=== PATIENT | female | born 1955 | race Caucasian/White ===

== ENCOUNTER → 2020-06-04 | Day surgery (SDC) | payer OTHER, MEDICARE ==
[~2020-06-04] MED LIST: ALLOPURINOL100 MG PO; BENZOCAINE/TETRACAINE/BUTAMBEN AERO SPRAY 56 GM CAN ONE; BIOFREEZE TOP; BUMETANIDE0.5 MG PO; CILOSTAZOL50 MG PO; CLONAZEPAM1 MG PO; COLACE100 MG PO; CYCLOBENZAPRINE10 MG PO; CYMBALTA30 MG PO; DICLOFENAC SOD100 G1 TOP; EXCEDRIN MIGRA1 EAC3 PO; FAMOTIDINE20 MG PO; FLANDERS BUTTOC30 GM TOP; FLEET ENEMA133 ML PR; FLONASE ALLERG9.9 ML INH; HYDROCODON-ACE1 EAC9 PO; KETAMINE HCL INJ 50 MG/ML 10 ML VIAL ONE; LACTULOSE20 GM/30 M PO; LEVOTHYROXINE50 MCG PO; LIDOCAINE CREAM TOP; LIDOCAINE HCL 2% LOCAL INJ 5 ML SDV VIAL INJ ONE; LISINOPRIL2.5 MG PO; MAALOX MAXIMUM355 ML PO; MELATONIN3 M1 PO; METAMUCIL FIBE3.4 GM PO; NEURONTIN300 MG PO; NYSTATIN1 EAC9 TOP; ONDANSETRON2 MG/1 ML IV; OXYBUTYNIN CHLOR5 MG PO; PANTOPRAZOLE 40 MG 10ML VIAL ONE; PATADAY2.5 ML OP; PEPTO-BISM262 MG/15 PO; PHENAZOPYRIDIN100 MG PO; PROPOFOL IV EMULSION 10 MG/ML 20 ML VIAL ONE; REFRESH PLUS1 EACH OU; ROBITUSSIN COU118 M4 PO; SENOKOT-S TABL1 EACH PO; TERA-GEL TAR118 ML TOP; TESSALON PERLE100 MG PO; TYLENOL325 MG PO
[2020-06-04 10:40] VITALS: BP 137/74
== END | disposition home or self-care (01) ==
LOC: OR 06:25
PROVIDERS: ATTEND Internal Medicine Gastroenterology
DX: K29.50 Unspecified chronic gastritis without bleeding (principal); K21.9 Gastro-esophageal reflux disease without esophagitis; K22.8 Other specified diseases of esophagus; R13.10 Dysphagia, unspecified; K31.89 Other diseases of stomach and duodenum; R19.7 Diarrhea, unspecified; E66.01 Morbid (severe) obesity due to excess calories; M10.9 Gout, unspecified; M06.9 Rheumatoid arthritis, unspecified; J44.9 Chronic obstructive pulmonary disease, unspecified; I11.0 Hypertensive heart disease with heart failure; I50.9 Heart failure, unspecified; I89.0 Lymphedema, not elsewhere classified; F32.9 Major depressive disorder, single episode, unspecified; F41.9 Anxiety disorder, unspecified; Z88.0 Allergy status to penicillin; Z01.810 Encounter for preprocedural cardiovascular examination; Z79.82 Long term (current) use of aspirin
CPT/HCPCS: 43239; 43450; 93005; C9113; J2001; J2704; 43235

== ENCOUNTER → 2020-08-06 | Day surgery (SDC) | payer MEDICARE, OTHER ==
[~2020-08-06] MED LIST changes: -BENZOCAINE/TETRACAINE/BUTAMBEN AERO SPRAY 56 GM CAN ONE; +CYTOMEL25 MCG PO; +GLUCAGON FOR INJ 1 MG VIAL ONE; +HYOSCYAMINE SULFATE 0.5 MG/ML INJ ONE; -KETAMINE HCL INJ 50 MG/ML 10 ML VIAL ONE; -PANTOPRAZOLE 40 MG 10ML VIAL ONE; +PANTOPRAZOLE SO40 MG PO; +[UNRECOGNIZED DRUG - CODE] TOP
[2020-08-06 14:48] LABS: BASOPHILS % 0.5 % (0.0-1.0); EOSINOPHILS # (AUTO) 0.1 (0.0-0.4); EOSINOPHILS % 2.4 % (0.0-6.0); HEMATOCRIT 34.8 % (34.2-44.1); HEMOGLOBIN 11.2 g/dL (12.0-16.0); LYMPHOCYTES # (AUTO) 1.2 (1.0-3.2); LYMPHOCYTES % 21.5 % (18.0-39.1); MEAN CORPUSCULAR HEMOGLOBIN 32.9 pg (28-32); MEAN CORPUSCULAR HGB CONC 32.2 g/dL (31-35); MEAN CORPUSCULAR VOLUME 102.4 fL (81-99); MONOCYTES # (AUTO) 0.4 (0.2-0.8); MONOCYTES % 7.8 % (4.4-11.3); NEUTROPHILS # (AUTO) 3.7 (2.1-6.9); NEUTROPHILS % 67.6 % (38.7-80.0); PLATELET COUNT 163 x10e3/uL (140-360); RED CELL DISTRIBUTION WIDTH 13.1 % (11.7-14.4)
[2020-08-06 17:25] VITALS: BP 146/82
== END | disposition home or self-care (01) ==
LOC: OR 14:09
PROVIDERS: ATTEND Internal Medicine Gastroenterology
DX: Z12.11 Encounter for screening for malignant neoplasm of colon (principal); K59.00 Constipation, unspecified; K64.8 Other hemorrhoids; K21.9 Gastro-esophageal reflux disease without esophagitis; K44.9 Diaphragmatic hernia without obstruction or gangrene; R56.9 Unspecified convulsions; J44.9 Chronic obstructive pulmonary disease, unspecified; I11.0 Hypertensive heart disease with heart failure; I50.9 Heart failure, unspecified; E66.01 Morbid (severe) obesity due to excess calories; E03.9 Hypothyroidism, unspecified; I89.0 Lymphedema, not elsewhere classified; M06.9 Rheumatoid arthritis, unspecified; F32.9 Major depressive disorder, single episode, unspecified; F41.9 Anxiety disorder, unspecified; F17.210 Nicotine dependence, cigarettes, uncomplicated; Z88.0 Allergy status to penicillin
CPT/HCPCS: 36415; 45378; 85025; J1610; J1980; J2001; J2704

== ENCOUNTER → 2021-10-13 | Day surgery (SDC) | payer MEDICARE ==
[~2021-10-13] MED LIST changes: +CRANBERRY450 M2 PO; +DIFLUCAN100 MG PO; +ELMIRON100 MG PO; -GLUCAGON FOR INJ 1 MG VIAL ONE; -HYOSCYAMINE SULFATE 0.5 MG/ML INJ ONE; +IBUPROFEN200 MG PO; -LIDOCAINE HCL 2% LOCAL INJ 5 ML SDV VIAL INJ ONE; +MUPIROCIN22 GM TOP; +MYRBETRIQ50 MG PO; +NEURONTIN100 MG PO; +NITROGLYCERIN0.4 MG SL; +NYSTATIN-TRIAMC15 GM TOP; +POVIDONE IODINE 0.05% 0.05 % ML PO ONE; +RESTASIS1 EACH OU; +SILVADENE20 GM TOP; +TIZANIDINE HCL4 M1 PO; +VESICARE5 MG PO; +[UNRECOGNIZED DRUG - OTHER] TOP
[2021-10-13 10:54] LABS: BASOPHILS % 0.6 % (0.0-1.0); EOSINOPHILS # (AUTO) 0.1 (0.0-0.4); EOSINOPHILS % 2.5 % (0.0-6.0); HEMATOCRIT 36.1 % (34.2-44.1); HEMOGLOBIN 11.7 g/dL (12.0-16.0); LYMPHOCYTES # (AUTO) 0.8 (1.0-3.2); MEAN CORPUSCULAR HEMOGLOBIN 31.9 pg (28-32); MEAN CORPUSCULAR HGB CONC 32.4 g/dL (31-35); MEAN CORPUSCULAR VOLUME 98.4 fL (81-99); MONOCYTES # (AUTO) 0.5 (0.2-0.8); MONOCYTES % 9.2 % (4.4-11.3); NEUTROPHILS # (AUTO) 3.4 (2.1-6.9); NEUTROPHILS % 70.1 % (38.7-80.0); PLATELET COUNT 142 x10e3/uL (140-360); RED BLOOD COUNT 3.67 x10e6/uL (3.6-5.1); RED CELL DISTRIBUTION WIDTH 12.4 % (11.7-14.4)
[2021-10-13 13:00] VITALS: BP 158/80
== END | disposition home or self-care (01) ==
LOC: ENDO 09:25
PROVIDERS: ATTEND Internal Medicine Gastroenterology
DX: K20.90 Esophagitis, unspecified without bleeding (principal); K29.70 Gastritis, unspecified, without bleeding; K44.9 Diaphragmatic hernia without obstruction or gangrene; K31.89 Other diseases of stomach and duodenum; K28.9 Gastrojejunal ulcer, unspecified as acute or chronic, without hemorrhage or perforation; K21.9 Gastro-esophageal reflux disease without esophagitis; D72.820 Lymphocytosis (symptomatic); G47.33 Obstructive sleep apnea (adult) (pediatric); J44.9 Chronic obstructive pulmonary disease, unspecified; I13.0 Hypertensive heart and chronic kidney disease with heart failure and stage 1 through stage 4 chronic kidney disease, or unspecified chronic kidney disease; N18.4 Chronic kidney disease, stage 4 (severe); I50.9 Heart failure, unspecified; N39.0 Urinary tract infection, site not specified; E03.9 Hypothyroidism, unspecified; F32.A Depression, unspecified; F41.9 Anxiety disorder, unspecified; E66.01 Morbid (severe) obesity due to excess calories; R56.9 Unspecified convulsions; Z88.0 Allergy status to penicillin; F17.210 Nicotine dependence, cigarettes, uncomplicated; Z71.6 Tobacco abuse counseling; Z20.822 Contact with and (suspected) exposure to COVID-19; Z79.899 Other long term (current) drug therapy; Z68.44 Body mass index [BMI] 60.0-69.9, adult; Z85.828 Personal history of other malignant neoplasm of skin
CPT/HCPCS: 0223U; 36415; 43239; 43450; 85025; 93005; C9113; J2704

== ENCOUNTER → 2024-07-04 | Day surgery (SDC) | payer MEDICARE ==
[~2024-07-04] MED LIST changes: +ACETAMINOPHEN-1 EAC3 PO; +ACIDOPHILUS1 EAC1 PO; +ADVAIR 250-501 EACH INH; +ALBUTEROL0.63 MG/3 NEB; +ASPERCREME LI76.5 GM TOP; +CALCIPOTRIENE-B60 GM; +CRESTOR40 MG PO; +CYMBALTA30 MG; +ELIQUIS5 MG PO; +ENTRESTO 24 MG1 EACH PO; +EXCEDRIN MIGRA1 EAC3; +FENTANYL CITRATE/PF 100MCG/2 ML INJ ONE; +GLUCAGON EMERGEN1 MG IM; +GLYCOPYRROLATE INJ 0.2 MG/ML VIAL ONE; +HIPREX1 GM; +HYDROCORTISONE28 GM; +ISOSORBIDE MONO30 MG PO; +LACTATED RINGER'S 1,000 ML ONE; +LAMICTAL100 MG PO; +LIDOCAINE HCL 2% LOCAL INJ 5 ML SDV VIAL INJ ONE; +METOCLOPRAMIDE HCL 10 MG/2ML VIAL ONE; +MIRALAX17 GM PO; +MYLANTA MAXIMUM10 ML PO; +NEURONTIN400 MG PO; +OZEMPIC1 MG/0.71 SC; +PATADAY2.5 ML OU; -POVIDONE IODINE 0.05% 0.05 % ML PO ONE; +PROPOFOL IV EMULSION 50 ML IV ONE; +REFRESH PLUS1 EACH; +SUCRALFATE1 GM PO; +TRAZODONE HCL300 MG PO; +VENTOLIN HFA18 GM INH; +VITAMIN D350 MCG PO
[2024-07-04 12:02] LABS: BASOPHILS % 0.4 % (0.0-1.0); EOSINOPHILS # (AUTO) 0.1 (0.0-0.4); EOSINOPHILS % 2.8 % (0.0-6.0); LYMPHOCYTES # (AUTO) 0.7 (1.0-3.2); LYMPHOCYTES % 14.2 % (18.0-39.1); MEAN CORPUSCULAR HEMOGLOBIN 28.5 pg (28-32); MEAN CORPUSCULAR VOLUME 91.8 fL (81-99); MONOCYTES # (AUTO) 0.4 (0.2-0.8); MONOCYTES % 9.1 % (4.4-11.3); NEUTROPHILS # (AUTO) 3.4 (2.1-6.9); NEUTROPHILS % 73.3 % (38.7-80.0); PLATELET COUNT 153 x10e3/uL (140-360); RED BLOOD COUNT 3.16 x10e6/uL (3.6-5.1); RED CELL DISTRIBUTION WIDTH 14.8 % (11.7-14.4); WHITE BLOOD COUNT 4.64 x10e3/uL (4.8-10.8)
[2024-07-04] MEDS: ONDANSETRON HCL INJ 2MG/ML 2ML 2 MG/ML VIAL ONE (15:30)
[2024-07-04 15:55] VITALS: BP 140/70; PULSE 73; RESP 16; TEMP 98.3; O2SAT 99
== END | disposition home or self-care (01) ==
LOC: ENDO 11:37
PROVIDERS: ATTEND Internal Medicine Gastroenterology
DX: K22.2 Esophageal obstruction (principal); K29.70 Gastritis, unspecified, without bleeding; K20.90 Esophagitis, unspecified without bleeding; K31.89 Other diseases of stomach and duodenum; Z71.3 Dietary counseling and surveillance; I10 Essential (primary) hypertension; Z71.89 Other specified counseling; J44.9 Chronic obstructive pulmonary disease, unspecified; Z79.02 Long term (current) use of antithrombotics/antiplatelets; Z79.82 Long term (current) use of aspirin; Z79.85 Long-term (current) use of injectable non-insulin antidiabetic drugs; Z79.899 Other long term (current) drug therapy; Z85.828 Personal history of other malignant neoplasm of skin
CPT/HCPCS: 36415; 43239; 43450; 82948; 85025; 93005; J2003; J2405; J2470; J2765